=== PATIENT | male | born 1990 | race Caucasian/White ===

== ENCOUNTER 2020-01-31 14:28 | Emergency (ER) | payer BC ==
[~2020-01-31] VITALS: Ht 180.3 cm; Wt 122.7 kg
[~2020-01-31 14:28] MED LIST: CEPHALEXIN; DECADRON 4MG TAB4 MG PO; FLAGYL; HYDROCODONE/APAP; NO HOME MEDICATIONS; NORCO 325 MG-7.1 TAB PO; PENICILLIN V500 MG PO; PERCOCET 325 MG1 TA2 PO
[2020-01-31 14:42] VITALS: BP 132/84; TEMP 99.1
[2020-01-31] MEDS ORDERED: CEPHALEXIN500 M1 PO (16:50)
[2020-01-31 17:29] VITALS: PULSE 95
== END 2020-01-31 17:29 | disposition home or self-care (01) ==
LOC: COL.ER 14:28
DX: S91.311A Laceration without foreign body, right foot, initial encounter (principal); I10 Essential (primary) hypertension; Z23 Encounter for immunization; W26.0XXA Contact with knife, initial encounter; Y92.009 Unspecified place in unspecified non-institutional (private) residence as the place of occurrence of the external cause